=== PATIENT | male | born 1995 | race Caucasian/White ===

== ENCOUNTER 2016-10-09 04:03 | Emergency (ER) | payer OTHER ==
[~2016-10-09] VITALS: Ht 195.6 cm; Wt 93.0 kg
[2016-10-09 04:03] VITALS: BP_SYST 125
--- NOTE | 2016-10-09 04:03 | NUR ---
Patient to ER bed 1 to gown for evaluation. Side rails up. Report given to MACARENA ENNIS.
--- NOTE | 2016-10-09 04:04 | NUR ---
Pt brought in by in stable condition. Per , pt needs to be medically cleared for liablity purposes. Pt denies any medical hx. Pt denies any complaints or pain at this time. -sob -chest pain. No acute distress noted at this time, will continue to monitor
--- NOTE | 2016-10-09 04:08 | NUR ---
ER at bedside examining patient.
[2016-10-09 04:11] VITALS: BP_SYST 125
--- NOTE | 2016-10-09 04:11 | NUR ---
Patient given written and verbal discharge instructions and verbalizes understanding. ER MD Rodriguez discussed with patient the results and treatment provided. Patient in stable condition. ID arm band removed. Patient educated on pain management and to follow up with PMD. Pain Scale 0/10 Opportunity for questions provided and answered.
== END 2016-10-09 04:11 ==
LOC: SED 04:03
DX: Z02.89 Encounter for other administrative examinations (principal)
CPT/HCPCS: 99283